=== PATIENT | male | born 1995 | race Two or more races ===

== ENCOUNTER 2018-11-15 03:05 | Emergency (ER) | payer OTHER ==
[~2018-11-15] VITALS: Ht 175.3 cm; Wt 89.8 kg
[2018-11-15 03:18] VITALS: BP 142/80
== END 2018-11-15 06:04 | disposition left against medical advice (07) ==
LOC: ER 03:05
DX: F41.9 Anxiety disorder, unspecified (principal); Z53.21 Procedure and treatment not carried out due to patient leaving prior to being seen by health care provider
CPT/HCPCS: 93005

== ENCOUNTER 2020-02-07 17:40 | Inpatient (IN) | payer BC ==
[~2020-02-07] VITALS: Ht 175.3 cm; Wt 101.3 kg
[2020-02-07 18:39] LABS: Basophils # (auto) 0 10 ^3/uL (0-0.2); Basophils % (auto) 0.4 % (0.0-2.0); Eosinophils # (auto) 0.2 10 ^3/uL (0-0.8); Eosinophils % (auto) 1.6 % (0.0-7.0); Hematocrit 45.8 % (41.0-53.0); Hemoglobin 15.5 g/dL (13.5-17.5); Lymphocytes # (auto) 1.8 10 ^3/uL (0.4-5.4); Lymphocytes % (auto) 18.6 % (10.0-50.0); Mean Corpuscular Hgb Conc. 33.9 g/dL (32.0-36.0); Mean Corpuscular Volume 82.7 fL (80.0-100.0); Monocytes # (auto) 0.7 10 ^3/uL (0-1.3); Monocytes % (auto) 6.8 % (0.0-12.0); Neutrophils % (auto) 72.6 % (37.0-80.0); Nucleated Red Blood Cells % 0.2 %; Platelet Count (auto) 233 10^3/uL (140-450); Red Blood Cells 5.54 10^6/uL (4.5-5.90); Red Cell Distribution Width 13.4 % (11.8-14.3); White Blood Cell 9.7 10^3/uL (4.4-10.8)
[2020-02-07 18:56] LABS: Albumin 4.3 g/dL (3.4-5.0); Calcium 9.5 mg/dL (8.5-10.1); Magnesium 2.4 mg/dL (1.6-2.6); Potassium 4.1 mmol/L (3.5-5.1)
[2020-02-07 19:01] LABS: BUN/Creatinine Ratio 16.3; Bilirubin, Total 0.4 mg/dL (0.2-1.0); Total Protein 8.1 g/dL (6.4-8.2)
[2020-02-07 19:12] LABS: Urine WBC None Seen /hpf (0 - 3)
[2020-02-07 19:33] LABS: Urine Bacteria NONE SEEN /hpf (None Seen); Urine Blood Negative /uL (Negative); Urine Specific Gravity 1.001 (1.001-1.035)
[2020-02-07 19:51] LABS: Alcohol, Urine < 3.0 mg/dL (0-5); Amphetamine Screen, Urine NEGATIVE (NEGATIVE); Barbiturate Scree,Urine NEGATIVE (NEGATIVE); Benzodiazephine Screen, Urine NEGATIVE (NEGATIVE); Cannabinoid Screen, Urine NEGATIVE (NEGATIVE); Cocaine Screen, Urine NEGATIVE (NEGATIVE); Opiate Scree,Urine NEGATIVE (NEGATIVE); Phencyclidine Screen, Urine NEGATIVE (NEGATIVE)
[2020-02-07] MEDS ORDERED: cefTRIAXone 1GM/50ML D5W 50 ML IV ONE (20:15)
[2020-02-07] MEDS ORDERED: MORPHINE SULF INJ 2 MG/ML SYRINGE 1ML IV PRN ×2 (20:15)
[2020-02-07] MEDS ORDERED: ONDANSETRON HCL 4 MG/2 ML VIAL IV PRN (20:15)
[2020-02-07] MEDS ORDERED: DOCUSATE SOD 100 MG CAP PO PRN (20:15)
[2020-02-07] MEDS ORDERED: ALUM & MAG HYDROX-SIMETH LIQ(MAALOX) 30 ML PO ONE (20:15)
[2020-02-07] MEDS ORDERED: NITROGLYCERIN 0.4 MG SL TAB SL PRN ×2 (20:15)
[2020-02-07] MEDS ORDERED: HYDROcodone-ACET 5/325MG TAB PO PRN (20:15)
[2020-02-07] MEDS ORDERED: MORPHINE SULFATE 4 MG/ML SYR/VIAL IV PRN (20:15)
[2020-02-07] MEDS ORDERED: AZITHROMYCIN 500MG/ 250ML 250 ML IV ONE (20:15)
[2020-02-07] MEDS ORDERED: FUROSEMIDE 20 MG/2 ML VIAL IV ONE (20:30)
[2020-02-07] MEDS ORDERED: ACETAMINOPHEN 500 MG TAB PO PRN (20:45)
[2020-02-07 20:46] LABS: Cholesterol 179 mg/dL (< 200); HDL Cholesterol 50 mg/dL (40-59); LDL Cholesterol 116 mg/dL (< 100); Triglycerides 74 mg/dL (< 150)
[2020-02-07] MEDS ORDERED: hydrALAZINE HCL 20 MG/ML VL IV PRN (21:00)
[2020-02-07] MEDS ORDERED: MECLIZINE HCL 25 MG TAB PO PRN (21:00)
[2020-02-07] MEDS: LORazepam 0.5 MG TAB PO PRN (21:30)
[2020-02-07] MEDS: SODIUM CHLORIDE 0.9% 1,000 ML IV SCH (21:38)
[2020-02-07] MEDS: ZINC SULFATE 220mg CAP or TAB PO SCH (21:39)
[2020-02-07] MEDS: CHOLECALCIFEROL (VITD3) 1,000IU=25mCg TAB PO SCH (21:39)
[2020-02-07] MEDS: ASCORBIC ACID 1,000 MG TAB PO SCH (21:39)
[2020-02-07] MEDS: METOPROLOL TARTRATE 25 MG TAB PO SCH (22:00)
[2020-02-07] MEDS ORDERED: ALBUTEROL SULF HFA 90MCG INH 200DOSE IN SCH (22:00)
[2020-02-07] MEDS: ATORVASTATIN 20 MG TAB PO SCH (22:32)
[2020-02-07 23:05] VITALS: BP 143/94
--- NOTE | 2020-02-07 23:05 | NUR ---
arrival note pt arrived to [facility] unit via wheelchair. pt transferred self to [facility] unit wheel chair in ante room. pt was then transported to 239 vis wheelchair. pt transferred self to hospital bed. pt is A&Ox4, and denies pain or discomfort at this time. respirations are even and nonlabored. pt complains of SOB on exertion. 20g at right ac. POC discussed. bp 143/94, hr 81, rr 18, temp 98.4, spo2 98%.
--- NOTE | 2020-02-07 23:45 | NUR ---
Patient Property Management Form Completed and witnessed with 2 RNs with signatures, to avoid taking form in and out of patient room. Form placed in chart.
[2020-02-07] MEDS: DOXYCYCLINE 100 MG TAB/CAP PO SCH (23:57)
[2020-02-08] VITALS (7 sets, daily range): BP systolic 122–144; BP diastolic 56–85
[2020-02-08] MEDS ORDERED: ALUM & MAG HYDROX-SIMETH LIQ(MAALOX) 30 ML PO PRN
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
[2020-02-08 06:18] LABS: Basophils # (auto) 0 10 ^3/uL (0-0.2); Basophils % (auto) 0.5 % (0.0-2.0); Eosinophils # (auto) 0.1 10 ^3/uL (0-0.8); Eosinophils % (auto) 1.5 % (0.0-7.0); Hematocrit 44.2 % (41.0-53.0); Hemoglobin 15.2 g/dL (13.5-17.5); Lymphocytes # (auto) 2.7 10 ^3/uL (0.4-5.4); Lymphocytes % (auto) 29.5 % (10.0-50.0); Mean Corpuscular Hemoglobin 28.2 pg (28.0-32.0); Mean Corpuscular Hgb Conc. 34.4 g/dL (32.0-36.0); Mean Corpuscular Volume 81.9 fL (80.0-100.0); Monocytes # (auto) 0.6 10 ^3/uL (0-1.3); Monocytes % (auto) 6.7 % (0.0-12.0); Neutrophils # (auto) 5.5 10 ^3/uL (1.6-8.6); Neutrophils % (auto) 61.8 % (37.0-80.0); Nucleated Red Blood Cells % 0.3 %; Platelet Count (auto) 212 10^3/uL (140-450); Red Blood Cells 5.39 10^6/uL (4.5-5.90); Red Cell Distribution Width 13.1 % (11.8-14.3)
[2020-02-08] MEDS: FUROSEMIDE 20 MG/2 ML VIAL IV SCH ×2 (06:32→17:31)
[2020-02-08 06:33] LABS: INR 1.06 (0.9-1.15); Partial Thromboplastin Time 26.7 sec (23.64-32.05)
[2020-02-08 06:37] LABS: Potassium 3.6 mmol/L (3.5-5.1)
--- NOTE | 2020-02-08 06:51 | NUR ---
Closing note Pt is awake, A&Ox4, and without SOB at this time. Pt states that he does not have chest pain at this time. Respirations are even and nonlabored, with a respiratory rate of 18. Bed is in a low locked position, and call light is within reach.
[2020-02-08 06:53] LABS: Albumin 4.1 g/dL (3.4-5.0); BUN/Creatinine Ratio 15.2; Bilirubin, Total 0.6 mg/dL (0.2-1.0); Calcium 9.1 mg/dL (8.5-10.1); Magnesium 2.6 mg/dL (1.6-2.6); Phosphorus 4.3 mg/dL (2.5-4.90); Total Protein 8.1 g/dL (6.4-8.2)
[2020-02-08] MEDS: METOPROLOL TARTRATE 25 MG TAB PO SCH ×2 (09:14→21:32)
[2020-02-08] MEDS: CLOPIDOGREL BISULFATE 75 MG TAB PO SCH (09:14)
[2020-02-08] MEDS: SODIUM CHLORIDE 0.9% 1,000 ML IV SCH ×2 (09:15→21:34)
[2020-02-08] MEDS: ZINC SULFATE 220mg CAP or TAB PO SCH (09:16)
[2020-02-08] MEDS: DOXYCYCLINE 100 MG TAB/CAP PO SCH ×2 (09:16→21:32)
[2020-02-08] MEDS: ASPirin 81 mg TAB PO SCH (09:16)
[2020-02-08] MEDS: ASCORBIC ACID 1,000 MG TAB PO SCH (09:16)
[2020-02-08] MEDS: CHOLECALCIFEROL (VITD3) 1,000IU=25mCg TAB PO SCH (09:17)
[2020-02-08] MEDS ORDERED: ENOXAPARIN SOD 30 MG/0.3 ML SYRINGE SC SCH (10:00)
--- NOTE | 2020-02-08 13:50 | NUR ---
patient arrived to unit, alert and oriented with no s/s of distress noted at time of arrival. patient oriented to new room.
--- NOTE | 2020-02-08 16:52 | NUR ---
Tawanna at bedside.
--- NOTE | 2020-02-08 16:55 | NUR ---
Dr osorio asked if I could let patient know his HIV status is negative.
--- NOTE | 2020-02-08 17:00 | NUR ---
Notified patient of negative HIV status.
--- NOTE | 2020-02-08 17:01 | NUR ---
cooling measures in place for current temp 100.3.
--- NOTE | 2020-02-08 19:24 | NUR ---
Report given to Night nurse, care endorsed
[2020-02-08] MEDS: LORazepam 0.5 MG TAB PO PRN (21:32)
[2020-02-08] MEDS: ATORVASTATIN 20 MG TAB PO SCH (21:32)
[2020-02-09 05:27] VITALS: BP 123/79
[2020-02-09] MEDS: FUROSEMIDE 20 MG/2 ML VIAL IV SCH ×2 (05:41→19:00)
--- NOTE | 2020-02-09 07:30 | NUR ---
Opening Shift Note Assuming care of patient at this time. Patient is aware of NPO status for stress test. Patient shows no signs or symptoms of distress or shortness of breath. Patient denies chest pain at this time. Bed is locked and lowered with side rails up x2. Instructed patient on the plan of care for today and to call for assistance as needed. Call light within reach. Will continue to round hourly and as needed.
[2020-02-09] MEDS ORDERED: ADENOSINE 85 MG in GIVE UN-DILUTED 0 ML IV STA (08:33)
[2020-02-09 09:00] VITALS: BP 128/71
[2020-02-09] MEDS: METOPROLOL TARTRATE 25 MG TAB PO SCH (10:00)
[2020-02-09] MEDS: CLOPIDOGREL BISULFATE 75 MG TAB PO SCH (10:00)
[2020-02-09 11:12] VITALS: BP 123/83
[2020-02-09] MEDS ORDERED: ENOXAPARIN SOD 40 MG/0.4 ML SYRINGE SC SCH (11:52)
[2020-02-09] MEDS: SODIUM CHLORIDE 0.9% 1,000 ML IV SCH (12:10)
[2020-02-09] MEDS: CHOLECALCIFEROL (VITD3) 1,000IU=25mCg TAB PO SCH (12:27)
[2020-02-09] MEDS: DOXYCYCLINE 100 MG TAB/CAP PO SCH (12:28)
[2020-02-09] MEDS: ASPirin 81 mg TAB PO SCH (12:28)
[2020-02-09] MEDS: ASCORBIC ACID 1,000 MG TAB PO SCH (12:28)
[2020-02-09 13:00] VITALS: BP 117/69
[2020-02-09 17:00] VITALS: BP 120/69
[2020-02-09 18:10] VITALS: BP 120/69
--- NOTE | 2020-02-09 19:02 | NUR ---
Discharge Discharge instructions given as ordered. Encourage to follow up with PMD as instructed. All questions and concerns addressed. Patient verbalized understanding. Medication reconciliation form completed and copy given to patient. IV removed with catheter intact, pressure dressing applied.. Telemetry unit returned to ICU. Patient ambulated with all personal belongings to wait in lobby for ride. No distress noted at time of departure.
[2020-02-10 08:23] LABS: Hepatitis B Surface Antibody Negative
[2020-02-10 09:00] LABS: Hepatitis A Total Antibody Positive
[2020-02-10 10:28] LABS: Hepatitis A Ab IgM Negative; Hepatitis B Core IgM Negative
[2020-02-10 10:29] LABS: Hepatitis B Core Total AB Negative; Hepatitis B Surface Antigen Negative (Negative); Hepatitis C Antibody Negative (Negative)
== END 2020-02-09 18:58 | disposition home or self-care (01) | DRG 280 ==
LOC: ER 17:40 → TELE-EAST 17:41 → UNDOADMIN 17:41 → TELE 17:41 → TELE-CENTR 02-08 14:20
PROVIDERS: ADMIT Hospitalist; ATTEND Internal Medicine
DX: I21.4 Non-ST elevation (NSTEMI) myocardial infarction (principal); J18.9 Pneumonia, unspecified organism; E66.9 Obesity, unspecified; E78.5 Hyperlipidemia, unspecified; F12.90 Cannabis use, unspecified, uncomplicated; F41.9 Anxiety disorder, unspecified; I10 Essential (primary) hypertension; Z79.82 Long term (current) use of aspirin; Z79.899 Other long term (current) drug therapy; Z82.49 Family history of ischemic heart disease and other diseases of the circulatory system; Z03.818 Encounter for observation for suspected exposure to other biological agents ruled out; Z68.33 Body mass index [BMI] 33.0-33.9, adult
CPT/HCPCS: 36415; 71045; 78452; 80053; 80061; 80074; 80307; 81001; 82085; 82550; 82553; 82728; 83036; 83605; 83615; 83735; 83880; 84100; 84443; 84484; 85025; 85379; 85610; 85652; 85730; 86141; 86703; 86704; 86706; 86708; 86803; 87040; 87070; 87340; 87804; 87880; 93005; 93017; 93306; G0378; J0153; J0696

== ENCOUNTER 2020-03-06 09:23 | Emergency (ER) | payer BC ==
[~2020-03-06] VITALS: Ht 175.3 cm; Wt 97.5 kg
[2020-03-06 09:55] VITALS: BP 146/92
[2020-03-06] MEDS ORDERED: cefTRIAXone SODIUM 250 MG VL IM ONE (10:30)
[2020-03-06] MEDS ORDERED: AZITHROMYCIN 250 MG TAB PO ONE (10:30)
== END 2020-03-06 11:21 | disposition home or self-care (01) ==
LOC: ER 09:23
DX: R21 Rash and other nonspecific skin eruption (principal); Z20.2 Contact with and (suspected) exposure to infections with a predominantly sexual mode of transmission
CPT/HCPCS: 96372; 99283; J0696; 81002

== ENCOUNTER 2020-08-19 18:50 | Emergency (ER) | payer BC ==
[~2020-08-19] VITALS: Ht 175.3 cm; Wt 104.3 kg
[2020-08-19 20:27] LABS: Basophils # (auto) 0.1 10 ^3/uL (0-0.2); Basophils % (auto) 0.6 % (0.0-2.0); Eosinophils # (auto) 0.2 10 ^3/uL (0-0.8); Hematocrit 45.7 % (41.0-53.0); Hemoglobin 15.2 g/dL (13.5-17.5); Lymphocytes # (auto) 3.1 10 ^3/uL (0.4-5.4); Lymphocytes % (auto) 32.8 % (10.0-50.0); Mean Corpuscular Hemoglobin 27.5 pg (28.0-32.0); Mean Corpuscular Hgb Conc. 33.3 g/dL (32.0-36.0); Mean Corpuscular Volume 82.5 fL (80.0-100.0); Monocytes # (auto) 0.6 10 ^3/uL (0-1.3); Monocytes % (auto) 6.5 % (0.0-12.0); Neutrophils # (auto) 5.5 10 ^3/uL (1.6-8.6); Neutrophils % (auto) 58.1 % (37.0-80.0); Nucleated Red Blood Cells % 0.1 %; Platelet Count (auto) 242 10^3/uL (140-450); Red Blood Cells 5.53 10^6/uL (4.5-5.90); Red Cell Distribution Width 13.4 % (11.8-14.3); White Blood Cell 9.4 10^3/uL (4.4-10.8)
[2020-08-19 20:48] LABS: Albumin 4.2 g/dL (3.4-5.0); Calcium 8.8 mg/dL (8.5-10.1); Magnesium 2.2 mg/dL (1.6-2.6); Potassium 3.3 mmol/L (3.5-5.1)
[2020-08-19 20:55] LABS: BUN/Creatinine Ratio 16.5; Bilirubin, Total 0.4 mg/dL (0.2-1.0); Total Protein 7.9 g/dL (6.4-8.2)
[2020-08-19 23:22] LABS: INR 1.03 (0.9-1.15); Partial Thromboplastin Time 26.6 sec (23.0-31.2)
[2020-08-20 00:06] VITALS: BP 152/90
== END 2020-08-20 00:18 | disposition home or self-care (01) ==
LOC: ER 18:51
DX: R51.9 Headache, unspecified (principal); F41.9 Anxiety disorder, unspecified
CPT/HCPCS: 36415; 70450; 71045; 80053; 83735; 83880; 84443; 84484; 85025; 85379; 85610; 85730; 93005